=== PATIENT | male | born 1990 | race Caucasian/White ===

== ENCOUNTER 2023-02-13 07:31 | Day surgery (SDC) | payer BC ==
[2023-02-10 15:26] VITALS: BMI 29.9
[2023-02-13 08:10] VITALS: RESP 16
[2023-02-13] MEDS ORDERED: MIDAZOLAM HCL 2 MG/2 ML SINGLE DOSE VIAL ONE (09:47)
[2023-02-13] MEDS ORDERED: ROPIVACAINE HCL 0.5% 30ML VIAL ONE (09:48)
[2023-02-13] MEDS ORDERED: FENTANYL CITRATE/PF 50 MCG/ML VIAL ONE (09:48)
[2023-02-13] MEDS ORDERED: PROPOFOL 20 ML ONE (10:19)
[2023-02-13] MEDS ORDERED: oxyCODONE HCL 5 MG TABLET PO PRN ×2 (11:37)
[2023-02-13] MEDS ORDERED: LACTATED RINGERS SOLUTION 1,000 ML IV SCH (11:45)
[2023-02-13 14:02] VITALS: BP 111/69; PULSE 68; TEMP 97.6
== END 2023-02-13 14:05 | disposition home or self-care (01) ==
LOC: FASU 07:31
PROVIDERS: ATTEND Orthopaedic Surgery
PROC: 0RNJ4ZZ Release Right Shoulder Joint, Percutaneous Endoscopic Approach (ICD-10-PCS; 2023-02-13)
PROC: 0PB94ZZ Excision of Right Clavicle, Percutaneous Endoscopic Approach (ICD-10-PCS; 2023-02-13)
PROC: 0RQJ4ZZ Repair Right Shoulder Joint, Percutaneous Endoscopic Approach (ICD-10-PCS; principal; 2023-02-13 10:42)
DX: S43.431A Superior glenoid labrum lesion of right shoulder, initial encounter (principal); X58.XXXA Exposure to other specified factors, initial encounter; Y93.9 Activity, unspecified; Y92.9 Unspecified place or not applicable; M75.01 Adhesive capsulitis of right shoulder; M75.41 Impingement syndrome of right shoulder; M25.811 Other specified joint disorders, right shoulder
CPT/HCPCS: 94760; C1713

== ENCOUNTER 2023-05-22 18:50 | Emergency (ER) | payer BC ==
[2023-05-22 19:18] VITALS: BP 121/77; PULSE 82; RESP 18; TEMP 98.3; BMI 31.0
== END 2023-05-22 19:55 | disposition home or self-care (01) ==
LOC: FER 18:50
DX: R42 Dizziness and giddiness (principal); Y93.B1 Activity, exercise machines primarily for muscle strengthening
CPT/HCPCS: 93005; 99283-25

== ENCOUNTER 2023-06-17 01:46 | Emergency (ER) | payer BC ==
[2023-06-17] MEDS ORDERED: LORATADINE 10 MG TABLET ONE (02:20)
[2023-06-17 02:27] VITALS: BP 114/82; PULSE 66; RESP 17; TEMP 97.8; BMI 30.5
[2023-06-17] MEDS: LORATADINE 10 MG TABLET PO ONE (02:27)
== END 2023-06-17 02:41 | disposition home or self-care (01) ==
LOC: FER 01:46
DX: R09.81 Nasal congestion (principal); R22.0 Localized swelling, mass and lump, head
CPT/HCPCS: 99283-25

== ENCOUNTER 2024-01-04 21:48 | Emergency (ER) | payer BC ==
[2024-01-04 21:54] VITALS: TEMP 98.3; BMI 31.0
[2024-01-04] MEDS ORDERED: ACETAMINOPHEN INJECTION 100 ML ONE (22:15)
[2024-01-04] MEDS ORDERED: ONDANSETRON 4 MG/2 ML VIAL ONE (22:15)
[2024-01-04] MEDS ORDERED: FAMOTIDINE 20 MG/50 ML IVPB 20 MG/50 ML MG IVPB ONE (22:16)
[2024-01-04] MEDS ORDERED: MAG HYDROX/AL HYDROX/SIMETH 30 ML UNIT-DOSE CUP ONE (22:16)
[2024-01-04] MEDS ORDERED: SIMETHICONE 40 MG/0.6 ML BOTTLE PO ONE (22:24)
[2024-01-04] MEDS: MAG HYDROX/AL HYDROX/SIMETH 30 ML UNIT-DOSE CUP PO ONE (22:36)
[2024-01-04] MEDS: ONDANSETRON 4 MG/2 ML VIAL IVPUSH ONE (22:37)
[2024-01-04] MEDS: FAMOTIDINE 20 MG/50 ML IVPB 20 MG/50 ML MG IVPB ONE (22:37)
[2024-01-04] MEDS: ACETAMINOPHEN 1000 MG/100 ML BAG IVPB ONE (22:37)
[2024-01-04] MEDS ORDERED: SIMETHICONE 80 MG TAB.CHEW (FP) ONE (22:43)
[2024-01-04 22:45] LABS: BASO % 0.7 % (0-2.0); EOS % 1.5 % (0-4.5); HEMATOCRIT 44.6 % (35.4-49); HEMOGLOBIN 15.6 GM/dL (11.7-16.9); LYMPH % 44.2 % (8-40); MCH 31.3 pg (25.7-33.7); MEAN CELL VOLUME 89.5 fl (80-96); MEAN PLT VOLUME 6.8 fl (7.5-11.1); MONO % 10.2 % (3.8-10.2); NEUT % 43.4 % (42.8-82.8); PLATELET COUNT 289 10^3/uL (134-434); RBC 4.98 M/mm3 (4.00-5.60); RDW 13.4 % (11.9-15.9); WHITE BLOOD COUNT 6.3 K/mm3 (4.0-10.0)
[2024-01-04] MEDS: SIMETHICONE 80 MG TAB.CHEW (FP) PO ONE (22:47)
[2024-01-04 22:58] LABS: POTASSIUM 3.9 mmol/L (3.5-5.1)
[2024-01-04 23:00] LABS: CALCIUM 9.4 mg/dL (8.5-10.1)
[2024-01-04 23:01] LABS: ALBUMIN 4.2 g/dl (3.4-5.0); BLOOD UREA NITROGEN 16.8 mg/dL (7-18)
[2024-01-04 23:04] LABS: CREATININE 1.1 mg/dL (0.55-1.3)
[2024-01-04 23:05] LABS: BILIRUBIN,TOTAL 0.3 mg/dL (0.2-1); TOT PROT 7.7 g/dl (6.4-8.2)
[2024-01-05 00:32] VITALS: BP 117/79; PULSE 66; RESP 18
[2024-01-05 01:50] LABS: HIV INTERPRETATION NEGATIVE (NEGATIVE)
== END 2024-01-05 01:55 | disposition home or self-care (01) ==
LOC: JER 21:48
PROC: 3E033GC Introduction of Other Therapeutic Substance into Peripheral Vein, Percutaneous Approach (ICD-10-PCS; principal; 2024-01-04)
PROC: 3E033NZ Introduction of Analgesics, Hypnotics, Sedatives into Peripheral Vein, Percutaneous Approach (ICD-10-PCS; 2024-01-04)
PROC: 3E033GC Introduction of Other Therapeutic Substance into Peripheral Vein, Percutaneous Approach (ICD-10-PCS; 2024-01-04)
DX: R42 Dizziness and giddiness (principal); R53.1 Weakness; R14.0 Abdominal distension (gaseous); R11.0 Nausea; K59.00 Constipation, unspecified; R10.13 Epigastric pain
CPT/HCPCS: 36415; 80053; 83690; 83735; 84484; 85025; 86803; 87389; 93005; 93010; 99284-25; J0131

== ENCOUNTER 2024-07-12 22:16 | Emergency (ER) | payer BC ==
[2024-07-12 22:54] VITALS: BP 120/72; PULSE 68; RESP 16; TEMP 98.2; BMI 31.4
[2024-07-12] MEDS ORDERED: AMOX TR/POT CLAV 875MG/125MG TABLETS (FP) ONE (22:58)
[2024-07-12] MEDS: AMOX TR/POT CLAV 875MG/125MG TABLETS (FP) PO ONE (23:00)
== END 2024-07-12 23:20 | disposition home or self-care (01) ==
LOC: FER 22:16
DX: R22.0 Localized swelling, mass and lump, head (principal); K04.7 Periapical abscess without sinus
CPT/HCPCS: 99283-25